=== PATIENT | female | born 1965 | race Caucasian/White ===

== ENCOUNTER 2017-09-29 06:36 | Day surgery (SDC) | payer OTHER ==
[2017-09-29] MEDS ORDERED: CEFAZOLIN 1 GM INJ (07:00)
[2017-09-29] MEDS ORDERED: CEFAZOLIN 2 GM/50 ML (PMX) 50 ML IVPB (09:30)
[2017-09-29] MEDS ORDERED: SOD CHLORIDE 0.9% 1,000 ML IV (09:30)
[2017-09-29 09:56] LABS: ADD MAN DIFF? NO
[2017-09-29 10:02] LABS: WHITE BLOOD COUNT 6.5 10^3/ul (4.8-10.8)
[2017-09-29 10:02] LABS: BASOPHILS % 0.6 % (0.0-2.0); EOSINOPHILS # 0.1 10^3/ul (0.0-0.5); EOSINOPHILS % 1.4 % (0.0-7.0); HEMATOCRIT 42.3 % (37.0-47.0); LYMPHOCYTES # 1.8 10^3/ul (0.8-2.9); LYMPHOCYTES % 27.1 % (15.0-51.0); MEAN CORPUSCULAR HEMOGLOBIN 30.1 pg (29.0-33.0); MEAN CORPUSCULAR HGB CONC 33.1 g/dl (32.0-37.0); MEAN PLATELET VOLUME 9.8 fl (7.4-10.4); MONOCYTE # 0.4 10^3/ul (0.3-0.9); MONOCYTES % 6.8 % (0.0-11.0); NEUTROPHIL # 4.1 10^3/ul (1.6-7.5); NEUTROPHILS % 63.9 % (39.0-77.0); PLATELET COUNT 311 10^3/UL (140-415); RED BLOOD COUNT 4.65 10^6/ul (4.20-5.40); RED CELL DISTRIBUTION WIDTH 12.3 % (11.5-14.5)
[2017-09-29 10:16] LABS: ALANINE AMINOTRANSFERASE 45 IU/L (13-69); ALBUMIN 4.5 g/dl (3.3-4.9); ALBUMIN/GLOBULIN RATIO 1.18; ALKALINE PHOSPHATASE 120 IU/L (42-121); ANION GAP 16 (8-16); ASPARTATE AMINO TRANSFERASE 30 IU/L (15-46); BILIRUBIN,INDIRECT 0.6 mg/dl (0-1.1); BILIRUBIN,TOTAL 0.6 mg/dl (0.2-1.3); CARBON DIOXIDE 27 mmol/L (21-31); CHLORIDE 105 mmol/L (97-110); GLUCOSE 100 mg/dl (70-220); TOTAL PROTEIN 8.3 g/dl (6.1-8.1)
[2017-09-29 10:17] LABS: BLOOD UREA NITROGEN 20 mg/dl (7-20); CALCIUM 9.7 mg/dl (8.4-10.2); CREATININE 0.78 mg/dl (0.44-1.00); POTASSIUM 3.9 mmol/L (3.5-5.1); SODIUM 144 mmol/L (135-144)
[2017-09-29 10:39] LABS: INR 0.93; PROTIME 12.6 Sec (11.9-14.9)
[2017-09-29] MEDS ORDERED: MIDAZOLAM 1 MG/ML 2 ML INJ (10:47)
[2017-09-29] MEDS ORDERED: ONDANSETRON 4 MG INJ (10:47)
[2017-09-29] MEDS ORDERED: PROPOFOL 20 ML (10:47)
[2017-09-29] MEDS ORDERED: FENTAnyl 50 MCG/ML VIAL (10:47)
[2017-09-29] MEDS ORDERED: METOCLOPRAMIDE 10 MG INJ (10:48)
[2017-09-29 10:51] LABS: PARTIAL THROMBOPLASTIN TIME 35.9 Sec (25.0-35.0)
[2017-09-29] MEDS ORDERED: DIPHENHYDRAMINE 50 MG INJ IV (11:00)
[2017-09-29] MEDS ORDERED: OXYCODONE/ACETAMINOPHEN (5/325) TAB PO ×2 (11:00)
[2017-09-29] MEDS ORDERED: ONDANSETRON 4 MG INJ IV (11:00)
[2017-09-29] MEDS ORDERED: HYDROmorphONE (0.2 MG/ML) 10ML SYG IV ×3 (11:00)
[2017-09-29] MEDS ORDERED: ISOSULFAN BLUE 1% 5 ML INJ SC (11:18)
== END 2017-10-03 08:57 | disposition home or self-care (01) ==
LOC: SDS 06:36
DX: N60.21 Fibroadenosis of right breast (principal); N60.11 Diffuse cystic mastopathy of right breast; N60.91 Unspecified benign mammary dysplasia of right breast; I10 Essential (primary) hypertension
CPT/HCPCS: 19301; 71045; 80053; 85025; 85610; 85730; 88307; 93005